=== PATIENT | female | born 1935 | race Hispanic/Latino ===

== ENCOUNTER → 2021-03-28 12:49 | Outpatient (CLI) | payer MEDICARE, MEDICAID, SELFPAY ==
--- NOTE | ~2021-03-28 | DEXA_ITS ---
CORRECTED REPORT Diagnosis corrected. Age-related osteoporosis without current pathological fracture M81.0 and postmenopausal. Hyperparathyrodism removed. 05/05/2021 sef Bone Density Report Name: Neha Dang Age: 85 Sex: Female Ethnicity: White Date of : 1935 Indication: height loss; prior fracture;Age-related osteoporosis without current pathological fracture M81.0, postmenopausal. Referring Provider: JOSEPH HERNANDEZ Study: Bone densitometry was performed. Exam Date: March 28, 2021 Accession number: [id number] Bone Density: Region BMD T-score Z-score Classification AP Spine (L1-L4) 0.743 -2.8 0.1 Osteoporosis Femoral Neck (Left) 0.448 -3.6 -1.1 Osteoporosis Total Hip (Left) 0.560 -3.1 -0.9 Osteoporosis Femoral Neck (Right) 0.437 -3.7 -1.3 Osteoporosis Total Hip (Right) 0.591 -2.9 -0.6 Osteoporosis Total Hip Mean 0.576 -3.0 -0.8 Osteoporosis World Health Organization criteria for BMD impression classify patients as: Normal (T-score at or above -1.0), Osteopenia (T-score between -1.0 and -2.5), or Osteoporosis (T-score at or below -2.5). 10-year Fracture Risk: FRAX not reported because: Some T-score for Spine Total or Hip Total or Femoral Neck at or below -2.5 Clinical Information Provided by Patient: Has had a low trauma fracture Smokes Has used the following medications: Vitamin D, Calcium Has the following medical conditions: Hyperparathyroidism Patient maximum height was 61 Menopause Age: 51 No regular weight bearing exercise Drinks caffeinated beverages Onset of menses at age 11 Number of children 4 Impression: The patient has established osteoporosis, based on the Right Femoral Neck T-score and the existence of a prior fracture. The patient has risk factors, including: smoking, previous fracture. Discussion: HIGH RISK OF FRACTURE. BONE DENSITY IS UNDESIRABLY LOW AT ONE OR MORE SKELETAL SITES, CONSISTENT WITH POSTMENOPAUSAL OSTEOPOROSIS. This patient's lowest T-score, in a patient who has previously fractured, meets the World Health Organization's (WHO) criteria for severe osteoporosis. In untreated patients, the risk of osteoporotic fracture increases approximately two-fold for each 1.0 SD decrease in T-score. Low bone density is not the only risk factor for fracture; also consider factors such as patient's age, frailty or poor health, risk of falling, risk of injury, previous osteoporotic fracture, family history of osteoporosis, cigarette smoking, low body weight, etc. Not everyone with low bone mineral density has osteoporosis; osteomalacia and other metabolic bone disorders should also be considered. Patients who have osteoporosis should be evaluated for specific diseases and conditions (secondary causes) that may cause or contribute to bone loss. [facility]
== END ==
PROVIDERS: PCP Family Medicine; Visit Provider Orthopaedic Surgery
DX: M81.0 Age-related osteoporosis without current pathological fracture (principal)
CPT/HCPCS: 77080